=== PATIENT | female | born 1940 | race Caucasian/White ===

== ENCOUNTER 2019-05-07 09:12 | Outpatient (CLI) | payer MEDICARE, BC ==
[~2019-05-07] VITALS: Ht 162.6 cm; Wt 48.0 kg
[2019-05-07 09:40] VITALS: BP 152/73; PULSE 81; TEMP 97.6
[2019-05-07] MEDS ORDERED: NORVASC 5MG5 MG/TAB PO (09:41)
[2019-05-07] MEDS ORDERED: ASPIRIN E.C. 8181 MG PO (09:41)
[2019-05-07] MEDS ORDERED: PLAQUENIL 200M200 MG PO (09:42)
[2019-05-07] MEDS ORDERED: LASIX 20MG TABL20 MG PO (09:42)
[2019-05-07] MEDS ORDERED: ZEBETA10 MG PO (09:42)
[2019-05-07] MEDS ORDERED: PEPCID 20MG TAB20 MG PO (09:42)
[2019-05-07] MEDS ORDERED: ARAVA 20MG TABL20 MG PO (09:43)
[2019-05-07] MEDS ORDERED: SYNTHROID0.1 MG/TAB PO (09:43)
[2019-05-07] MEDS ORDERED: ZESTRIL 10MG10 MG PO (09:45)
[2019-05-07] MEDS ORDERED: ZOCOR 20MG20 MG PO (09:45)
--- NOTE | 2019-05-07 11:15 | NUR ---
clam bed laborer working pt on how device works, unableto get device to connect, cath team spoke with pt and on turning device on at home, or to take device to appt that has been set up. Dressing over chest is clean and dry. reviewed discharge inst. with pt on appt, how to care for incision, activity and shower with verbal understanding. pt discharged via w/c to car with at 1120
== END 2019-05-07 20:15 | disposition home or self-care (01) ==
LOC: COL.CAR 09:12
DX: R55 Syncope and collapse (principal); I48.91 Unspecified atrial fibrillation; E78.5 Hyperlipidemia, unspecified; I10 Essential (primary) hypertension; I34.9 Nonrheumatic mitral valve disorder, unspecified; M06.9 Rheumatoid arthritis, unspecified; Z88.2 Allergy status to sulfonamides

== ENCOUNTER 2020-08-09 06:11 | Inpatient (IN) | payer MEDICARE, BC ==
[~2020-08-09] VITALS: Ht 162.6 cm; Wt 54.8 kg
[~2020-08-09 06:11] MED LIST: ARAVA 20MG TABL20 MG PO; ASPIRIN 81M81 MG/TA2 PO; ASPIRIN E.C. 8181 MG PO; LASIX 20MG TABL20 MG PO; LOPRESSOR100 MG PO; NORVASC 5MG5 MG/TAB PO; PEPCID 20MG TAB20 MG PO; PLAQUENIL 200M200 MG PO; PRINIVIL10 MG PO; SYNTHROID0.1 MG/TAB PO; ZEBETA10 MG PO; ZESTRIL 10MG10 MG PO; ZOCOR 20MG20 MG PO
[2020-08-11] VITALS (87 sets, daily range): BP systolic 109–143; BP diastolic 55–92; PULSE 55–110; TEMP 97.8–99; O2SAT 87–97
--- NOTE | 2020-08-11 08:45 | NUR ---
PT ARRIVES TO ICU 7 IN WC. PT AMBULTES WITH CANE TO ICU BED. ASSISTED INTO GOWN AND PLACED ON BEDSIDE CONTINUOUS MONITOR. CALL LIGHT WITHIN REACH. VSS. FAMILY AT BEDSIDE. DISCUSSED POC, VERBALIZED UNDERSTANDING.
[2020-08-11 09:47] LABS: CALCIUM 9.4 mg/dL (8.4-10.2); CREATININE, serum 2.35 (0.52-1.25); MAGNESIUM 2.2 mg/dL (1.6-2.3); POTASSIUM 4.1 mmol/L (3.4-5.0)
[2020-08-11] MEDS ORDERED: ZIAC 10/6.25M1 UDTAB PO (10:21)
[2020-08-11] MEDS ORDERED: TIAZAC120 MG PO (10:25)
[2020-08-11] MEDS ORDERED: CALCITRIOL PO (10:27)
[2020-08-11] MEDS ORDERED: SODIUM BICARBO650 MG PO (10:29)
[2020-08-11] MEDS ORDERED: TYLENOL 500MG500 MG PO ×2 (10:32→12:25)
--- NOTE | 2020-08-11 10:37 | NUR ---
Facility Supervisor met with the patient to complete intake. The patient lives in [place] with her , Axel. The patient uses a cane, has a walker, and is independent. The patient's PCP is Dr. Acevedo and patient receives medications from [facility] in . The patient does not have advanced directives in the EMR but states they are complete and designate her , Axel and daughter, Frida. The discharge plan is to return home at discharge. SW met with Frida and Axel who were visiting the patient. PT/OT ordered. *Discharge disposition: Home with spouse
--- NOTE | 2020-08-11 12:03 | NUR ---
REPORT GIVEN TO SRIDEVI GONZALES ON MEDICAL. PT TO TRANSFER TO [facility] VIA ON RA. ALL PERSONAL BELONGINGS SENT WITH PT. DAUGHTER AND ACCOMPANYING PT.
--- NOTE | 2020-08-11 19:01 | NUR ---
Pt rested well after arriving to the floor. Up frequently to the restroom. Denies chest pain. HR irregular. Lungs CTA, currently on RA. Pt has a small blister to center of chest. No N/V. IV to LFA CDI. POC discussed with patient who verbalizes understanding. No needs at this time. Fall precautions in place.
--- NOTE | 2020-08-11 22:17 | NUR ---
Shift assessment completed. Patient alert and oriented. Patient denies chest pain or discomfort. Patient denies headache, dizziness, or N/V. Patient reports SOB with ambulation. Breathing even and unlabored while at rest. No SOB noted at this time. All scheduled meds given per MAY. Assisted patient to the bathroom to void. Call light within reach. Patient denies further needs at this time.
[2020-08-12] VITALS (8 sets, daily range): BP systolic 122–158; BP diastolic 50–70; PULSE 56–136; TEMP 97.6–98.1
--- NOTE | 2020-08-12 03:47 | NUR ---
Received phone call from ICU Telemetry regarding pt's heart rate goes up to 130-140s and falls back down to 60s immediately around 0300 am. Checked on patient. Patient sleeping. Patient awake with verbal stimuli. Alert and oriented. Patient denies chest pain, palpitation, dizziness, or headache. Paged DR. Tariq. Received phone call from Telemetry regarding pt's heart rate drops down to 33-35 and goes up to 60s immediately around 03:[address] Tariq again. Called Dr. Tariq's cell phone around 03:40 am. Unable to reach Dr. Tariq. Will call Dr. Tariq again in AM.
--- NOTE | 2020-08-12 06:15 | NUR ---
Paged Dr. Tariq again at 0500 am. No return calls. Called [facility] at [facility]: 08 am. Per forming yardage control operator from [employer], they will page Dr. Tariq. Awating return phone call from Dr. Tariq. Will endorse to day shift RN.
[2020-08-12 07:19] LABS: MAGNESIUM 2.2 mg/dL (1.6-2.3)
[2020-08-12 07:35] LABS: CREATININE, serum 2.33 (0.52-1.25)
[2020-08-12 08:21] LABS: BASO # 0.1 (0.0-0.2); BASO % 0.9 % (0.0-2.0); GRAN # 3.6 (1.4-6.5); GRAN % 65.5 % (42.2-75.2); HEMATOCRIT 37.3 % (37.0-47.0); HEMOGLOBIN 11.7 g/dl (12.5-16.0); LYMPH # 1.2 (1.2-3.4); LYMPH % 21.7 % (20.0-51.0); MEAN CELL VOLUME 100 fl (80.0-100.0); MEAN CORPUSCULAR HEMOGLOBIN 31 pg (27.0-31.0); MEAN CORPUSCULAR HGB CONC 31 g/dl (33.0-37.0); MEAN PLATELET VOLUME 10.1 fl (7.4-10.4); MONO # 0.6 (0.1-0.6); MONO % 11.5 % (1.7-9.3); PLATELET COUNT 219 K/mm3 (130-400); RED BLOOD COUNT 3.74 M/mm3 (4.10-5.30); REDCELL DISTRIBUTION WIDTH-CV 15.9 % (11.5-14.5)
--- NOTE | 2020-08-12 08:29 | NUR ---
Pt awake and alert upon entry this morning, has C/O pain in her hands, medication given for relief. Shift assessments complete, left Pt call light in reach, bed in lowest position.
[2020-08-12 11:48] LABS: PARTIAL THROMBOPLASTIN TIME 69.1 SECONDS (26.0-37.0)
--- NOTE | 2020-08-12 14:15 | NUR ---
SW asked the patient's RN for PT/OT to be ordered.
--- NOTE | 2020-08-12 18:23 | NUR ---
Pt resting in the room had C/O pain this morning R/T her arthritis, no further complaints of pain during the day. Pt currently on a heparin drip @ 10 ml/hr. VS have remained stable.
--- NOTE | 2020-08-12 19:20 | NUR ---
1800 HepXa result 0.51; This is within goal range and no titration to heparin gtt is needed. Recheck lab ordered for 0000.
--- NOTE | 2020-08-12 19:27 | NUR ---
Bedside shift report received from [facility]. Patient currently awake, resting in bed with no complaints. Heparin gtt infusing at 10 ml/hr.
[2020-08-13] VITALS (7 sets, daily range): BP systolic 106–161; BP diastolic 64–90; PULSE 69–132; TEMP 97.8–98.1
--- NOTE | 2020-08-13 | NUR ---
Notified by tele at this time that patient's HR is sustaining 100-130's. Patient is assessed; She is sleeping in bed with no complaints of SOA or chest pain; vitals are stable. Dr. Wall contacted and orders one time dose 25 mg metoprolol titrate to be administered. EKG is ordered as well. Will continue to monitor.
--- NOTE | 2020-08-13 07:00 | NUR ---
Report with SRIDEVI Perdomo. Pt resting in bed, awake and alert, denies needs at this time. Lab in room for blood draw with Heparin infusion on standby. Call light in reach.
[2020-08-13 07:05] LABS: BASO # 0.1 (0.0-0.2); BASO % 0.8 % (0.0-2.0); EOS # 0.1 (0.0-0.7); EOS % 2.1 % (0-4.0); GRAN # 4.3 (1.4-6.5); GRAN % 64.2 % (42.2-75.2); HEMATOCRIT 43.1 % (37.0-47.0); HEMOGLOBIN 13.5 g/dl (12.5-16.0); LYMPH # 1.4 (1.2-3.4); LYMPH % 21.7 % (20.0-51.0); MEAN CELL VOLUME 96 fl (80.0-100.0); MEAN CORPUSCULAR HEMOGLOBIN 30 pg (27.0-31.0); MEAN CORPUSCULAR HGB CONC 31 g/dl (33.0-37.0); MEAN PLATELET VOLUME 9.5 fl (7.4-10.4); MONO # 0.7 (0.1-0.6); MONO % 10.7 % (1.7-9.3); PLATELET COUNT 260 K/mm3 (130-400); RED BLOOD COUNT 4.47 M/mm3 (4.10-5.30); REDCELL DISTRIBUTION WIDTH-CV 15.7 % (11.5-14.5)
--- NOTE | 2020-08-13 07:15 | NUR ---
Heparin infusion restarted per orders with blood draw now complete.
[2020-08-13 07:23] LABS: CALCIUM 9.5 mg/dL (8.4-10.2); CREATININE, serum 2.26 (0.52-1.25); MAGNESIUM 2.2 mg/dL (1.6-2.3); POTASSIUM 4.2 mmol/L (3.4-5.0)
--- NOTE | 2020-08-13 08:55 | NUR ---
Heparin infusion stopped per telephone order in preparation for pt's procedure.
--- NOTE | 2020-08-13 11:35 | NUR ---
Pt to clam bed laborer for procedure via bed accompanied by SRIDEVI Montgomery.
--- NOTE | 2020-08-13 13:43 | NUR ---
Pt back to room following procedure via bed, awake, slightly drowsy, oriented x 3. Dressings x 2 to left chest CDI. IVF's infusing by gravity to left forearm site without s/s of complications. VSS. Pt denies pain or needs at this time. Call light in reach.
[2020-08-13] MEDS ORDERED: CEPHALEXIN500 M1 PO (13:44)
[2020-08-13] MEDS ORDERED: BETAPACE 80MG80 MG PO (13:45)
--- NOTE | 2020-08-13 16:59 | NUR ---
Discharge paperwork reviewed with with the patient and family. Patient verbalized an understanding to follow doctors orders. IV removed, tip intact, patient tolerated well. Gauze and coban applied. Incision site to left chest CDI. No further needs expressed from the patient.
--- NOTE | 2020-08-13 17:20 | NUR ---
Patient taken by wheelchair by nursing staff to vehicle. Family with the patient. Discharge paperwork and personal belongins with the patient. Patient verbalized an understanding to follow doctors orders. No further needs expressed from the patient.
== END 2020-08-13 17:25 | disposition home or self-care (01) | DRG 243 ==
LOC: ICU 08-11 08:28 → MEDICAL 08-11 12:22
PROVIDERS: ADMIT Internal Medicine Cardiovascular Disease
PROC: 0JH606Z Insertion of Pacemaker, Dual Chamber into Chest Subcutaneous Tissue and Fascia, Open Approach (ICD-10-PCS; principal; 2020-08-11)
PROC: 02H63JZ Insertion of Pacemaker Lead into Right Atrium, Percutaneous Approach (ICD-10-PCS; 2020-08-11)
PROC: 0JH632Z Insertion of Monitoring Device into Chest Subcutaneous Tissue and Fascia, Percutaneous Approach (ICD-10-PCS; 2020-08-11)
PROC: 02HK3JZ Insertion of Pacemaker Lead into Right Ventricle, Percutaneous Approach (ICD-10-PCS; 2020-08-11)
DX: I48.0 Paroxysmal atrial fibrillation (principal); I13.0 Hypertensive heart and chronic kidney disease with heart failure and stage 1 through stage 4 chronic kidney disease, or unspecified chronic kidney disease; E78.5 Hyperlipidemia, unspecified; I50.9 Heart failure, unspecified; M06.9 Rheumatoid arthritis, unspecified; N18.9 Chronic kidney disease, unspecified
CPT/HCPCS: C1785; C1894; C1898; J0690; J1644; J2250; J2704; J3010; J7030; Q9967

== ENCOUNTER 2021-06-21 07:04 | Outpatient (CLI) | payer MEDICARE, BC ==
[~2021-06-21] VITALS: Ht 162.6 cm; Wt 58.4 kg
[~2021-06-21 07:04] MED LIST changes: +BETAPACE 80MG80 MG PO; +CALCITRIOL PO; +CEPHALEXIN500 M1 PO; +SODIUM BICARBO650 MG PO; +TIAZAC180 MG PO; +TYLENOL 500MG500 MG PO; +ZIAC 10/6.25M1 UDTAB PO
[2021-06-21 07:57] LABS: BASO % 0.4 % (0.0-2.0); EOS # 0.2 K/mm3 (0.0-0.7); EOS % 2.7 % (0.0-4.0); HEMATOCRIT 37.2 % (37.0-47.0); HEMOGLOBIN 11.9 g/dl (12.5-16.0); LYMPH # 1.1 K/mm3 (1.2-3.4); LYMPH % 15.9 % (20.0-51.0); MEAN CELL VOLUME 96 fl (80.0-100.0); MEAN CORPUSCULAR HEMOGLOBIN 31 pg (27-31); MEAN CORPUSCULAR HGB CONC 32 g/dl (33.0-37.0); MEAN PLATELET VOLUME 9.8 fl (7.4-10.4); MONO # 0.6 K/mm3 (0.1-0.6); MONO % 8.6 % (1.7-9.3); PLATELET COUNT 220 K/mm3 (130-400); RED BLOOD COUNT 3.87 M/mm3 (4.10-5.30); REDCELL DISTRIBUTION WIDTH-CV 15.6 % (11.5-14.5)
[2021-06-21 07:58] VITALS: BP 173/93; PULSE 79; TEMP 97.4
[2021-06-21] MEDS ORDERED: CORDARONE200 MG/TAB PO (08:05)
[2021-06-21] MEDS ORDERED: ELIQUIS 5MG PO (08:10)
[2021-06-21] MEDS ORDERED: PRAVACHOL 20MG20 MG PO (08:11)
[2021-06-21 08:12] LABS: CREATININE, serum 2.84 mg/dL (0.57-1.11); INR 1.2 (0.8-3.0); POTASSIUM 4.6 mmol/L (3.5-4.5); PROTHROMBIN TIME 13.5 SECONDS (9.7-12.8)
[2021-06-21 09:50] VITALS: BP 164/77; PULSE 73
[2021-06-21 10:00] VITALS: BP 169/81; PULSE 80
[2021-06-21 10:15] VITALS: BP 175/92; PULSE 78
[2021-06-21 10:30] VITALS: BP 182/91; PULSE 78
[2021-06-21 10:45] VITALS: BP 178/93; PULSE 80
--- NOTE | 2021-06-21 10:50 | NUR ---
DC instructions were reviewed with pt and . Both expressed understanding. Pt has tolerated PO fluids without issue. She is steady on feet in room with use of cane. INT DC'd with catheter intact. She is assisted out to 's car by wheelchair with belongings.
== END 2021-06-21 10:50 | disposition home or self-care (01) ==
LOC: COL.RAD 07:04
PROVIDERS: Internal Medicine Cardiovascular Disease
DX: I34.9 Nonrheumatic mitral valve disorder, unspecified (principal)
CPT/HCPCS: J2370; J2704; J7030